=== PATIENT | female | born 1995 | race Caucasian/White ===

== ENCOUNTER 2020-06-20 16:19 | Emergency (ER) | payer BC ==
[2020-06-20] MEDS ORDERED: SODIUM CHLORIDE 1,000 ML IV ONE (16:37)
[2020-06-20 16:38] VITALS: BP 107/72; PULSE 86; TEMP 97.5; BMI 20.9
[2020-06-20 17:09] LABS: HCG,QUALITATIVE URINE Negative
[2020-06-20 17:09] LABS: BASO % 0.8 % (0-2.0); HEMATOCRIT 39.4 % (32.4-45.2); HEMOGLOBIN 13.1 GM/dl (10.7-15.3); LYMPH % 17.9 % (8-40); MCH 31.3 pg (25.7-33.7); MCHC 33.3 g/dl (32.0-36.0); MEAN CELL VOLUME 93.9 fl (80-96); MEAN PLT VOLUME 8.9 fl (7.5-11.1); MONO % 5.4 % (3.8-10.2); NEUT % 73.9 % (42.8-82.8); PLATELET COUNT 237 K/MM3 (134-434); RDW 11.6 % (11.6-15.6); WHITE BLOOD COUNT 8.5 K/mm3 (4.0-10.8)
[2020-06-20 17:19] LABS: ALBUMIN 3.8 g/dl (3.4-5.0); BILIRUBIN,TOTAL 0.4 mg/dl (0.2-1); CALCIUM 8.9 mg/dl (8.5-10); CREATININE 0.6 mg/dl (0.55-1.3); POTASSIUM 3.6 mmol/L (3.5-5.1); TOT PROT 7.1 g/dl (6.4-8.2)
[2020-06-20 17:33] LABS: EPITHELIAL CELLS FEW /hpf
--- NOTE | 2020-06-20 18:06 | PDOC ---
Documentation entered by Grace Klein SCRIBE, acting as scribe for Aries Sarabia MD. Aries Sarabia MD: This documentation has been prepared by the Ernie leyva Brenda, SCRIBE, under my direction and personally reviewed by me in its entirety. I confirm that the documentation accurately reflects all work, treatment, procedures, and medical decision making performed by me. History of Present Illness - General Chief Complaint: Seizure Stated Complaint: POSSIBLE SEIZURE Time Seen by Provider: 06/20/20 16:33 History Source: Patient Exam Limitations: No Limitations - History of Present Illness Initial Comments: 06/20/20 17:20 The patient is a 25 year old female with a significant PMH of seizures (no seizures in the past 5 years) who presents to the emergency department sent from [facility] for a seizure pre-op breast augmentation. Per Dr. Macdonald, he had her standing up pre-surgery, at which time she began to feel lightheaded and when he tried sitting her down, she convulsed. Per patient she felt okay this morning and has not eaten since 7:00pm yesterday and has not drank anything since 12:00am. She does endorse feeling lightheaded and as if she was about to pass out while with Dr. Macdonald pre-op. Patient then notes not remebering anything else and waking up, wondering why there was commotion around her. Dr. Macdonald reports no apparent postictal period. The patient denies chest pain, shortness of breath, headache and dizziness. Denies fever, chills, nausea, vomiting, diarrhea, blood per rectum and constipation. Denies dysuria, frequency, urgency and hematuria. Allergies: Per EMR Social history: No reported hx of tobacco use, alcohol use or illicit drug use. Past History - Medical History Allergies/Adverse Reactions: Allergies Allergy/AdvReac Type Severity Reaction Status Date / Time cefprozil [From Cefzil] Allergy Hives Verified 06/20/20 10:34 seasonal Allergy Uncoded 06/20/20 10:34 Home Medications: Ambulatory Orders Alprazolam [Xanax] 0.25 mg PO DAILY PRN 06/15/20 Escitalopram Oxalate [Lexapro -] 20 mg PO DAILY 06/15/20 Norethindrone-E.estradiol-Iron [Taytulla 1 mg-20 Mcg Capsule] 1 each PO DAILY 06/15/20 Anemia: Yes (hx of asymptomatic von willebrand) Asthma: No Cancer: No Cardiac Disorders: No CVA: No COPD: No CHF: No Dementia: No Diabetes: No GI Disorders: No Disorders: No HTN: No Hypercholesterolemia: No Liver Disease: No Seizures: Yes (2014 R/T stress) Thyroid Disease: No - Surgical History Abdominal Surgery: No Appendectomy: No Cardiac Surgery: No Cholecystectomy: No Lung Surgery: No Neurologic Surgery: No Orthopedic Surgery: No - Psycho-Social/Smoking History Smoking History: Never smoked Review of Systems - Review of Systems Able to Perform ROS?: Yes Comments:: 06/20/20 17:38 Constitutional - Pt denies Fever, Chills, weakness, HEENT: denies vision changes, sore throat Respiratory: Denies cough, sob, hemoptysis Cardiac: (+) Lightheadedness. denies chest pain, palpitations, leg swelling Abd/GI: denies abd pain, nausea, vomiting, blood per rectum, melena, diarrhea : denies dysuria, frequency, discharge Musculskelatal - denies back pain, joint swelling skin - denies bruising, erythema, rash neurological: denies headache, numbness, focal weakness, tingling, ataxia, weakness hematologic: denies anemia, easy bruising, easy bleeding *Physical Exam - Physical Exam 06/20/20 17:39 GENERAL: The patient is awake, alert, and fully oriented, Nontoxic - in no acute distress. NECK: Normal range of motion, supple without lymphadenopathy, JVD, or masses. LUNGS: Breath sounds equal, clear to auscultation bilaterally. No wheezes, no crackles, no rales. HEART: Regular rate and rhythm, normal S1 and S2 without murmur, rub or gallop. ABDOMEN: Soft, nontender, normoactive bowel sounds. No guarding, no rebound. No masses. EXTREMITIES: Normal range of motion, no edema. No clubbing or cyanosis. No cor ds, erythema, or tenderness. NEUROLOGICAL: No facial asymmetry, Normal speech, normal gait. PSYCH: Normal mood, normal affect. SKIN: Warm, Dry, normal turgor, no rashes or lesions noted. Heart Score/ECG Review - ECG Impressions Comment:: 06/20/20 17:13 Twelve-lead EKG was performed and reviewed by me. There is normal sinus rhythm with a normal rate. Rate of 74 The axis is normal. Incomplete right bundle branch block There is normal R wave progression There are no ST or T wave abnormalities. ED Treatment Course - LABORATORY CBC & Chemistry Diagram: 06/20/20 16:45 06/20/20 16:39 Medical Decision Making - Medical Decision Making 06/20/20 17:13 25-year-old female history of remote seizures, presenting with syncope versus seizure episode just prior to her surgery when she was standing. There was no apparent postictal. Patient was otherwise asymptomatic besides feeling very lightheaded prior to syncopized. Suspect syncope possibly related to hypotension/dehydration as pt was NPO. Will obtain screening blood work, EKG, will give fluids for hydration Will reassess 06/20/20 18:03 pt feeling improved ua noted for bacturia, but pt is asymptomatic and no white blood cels/LE, suspect contaminant -will defer treatment discussed with the pt - if she should develop any symtoms, she could fu for restest. Pt has an appt with a neurologist scheduled this week. return precautions were discussed I discussed the physical exam findings, ancillary test results and final diagnoses with the patient. I answered all of the patient's questions. The patient was satisfied with the care received and felt comfortable with the discharge plan and treatment plan. The patient will call their primary care physician within 24 hours to arrange follow-up and will return to the Emergency Department with any new, persistent or worsening symptoms. Discharge - Discharge Information Problems reviewed: Yes Clinical Impression/Diagnosis: Dehydration Syncope Qualifiers: Syncope type: vasovagal syncope Qualified Code(s): R55 - Syncope and collapse Condition: Improved Disposition: HOME - Admission No - Follow up/Referral - Patient Discharge Instructions Patient Printed Discharge Instructions: DI for Syncope in Adults (Fainting) Additional Instructions: Return to the emergency department immediately with ANY new, persistent or worsening symptoms. You MUST call and follow up with your doctor in 2-3 days for further evaluation of your symptoms. Results were discussed with you. Please make sure your doctor reviews the results of your emergency evaluation. Your Emergency Department visit is not complete without a follow up with your doctor. Print Language: MONGOLIAN - Post Discharge Activity
--- NOTE | 2020-06-21 10:19 | EKG ---
Test Reason : Blood Pressure : / mmHG Vent. Rate : 074 BPM Atrial Rate : 074 BPM P-R Int : 160 ms QRS Dur : 104 ms QT Int : 390 ms P-R-T Axes : 037 038 041 degrees QTc Int : 432 ms NORMAL SINUS RHYTHM INCOMPLETE RIGHT BUNDLE BRANCH BLOCK BORDERLINE ECG NO PREVIOUS ECGS AVAILABLE Confirmed by MD Mauro, Rigoberto ([id number]) on 06/21/2020 10:18:47 AM Referred By: Confirmed By:Rigoberto Wade MD
== END 2020-06-20 18:09 | disposition home or self-care (01) ==
LOC: FER 16:19 → SUPCPDRO 16:19 → FER 18:09
PROC: 3E0337Z Introduction of Electrolytic and Water Balance Substance into Peripheral Vein, Percutaneous Approach (ICD-10-PCS; principal; 2020-06-20)
DX: E86.0 Dehydration (principal); R55 Syncope and collapse
CPT/HCPCS: 36415; 80053; 81003; 81015; 84703; 85025; 93005; 99284-25

== ENCOUNTER 2020-07-11 06:21 | Day surgery (SDC) | payer SELFPAY ==
[2020-07-05 14:53] VITALS: BMI 20.9
[2020-07-11] MEDS ORDERED: MIDAZOLAM HCL 2 MG/2 ML SINGLE DOSE VIAL ONE (07:00)
[2020-07-11] MEDS ORDERED: PROPOFOL 20 ML ONE (07:03)
[2020-07-11] MEDS ORDERED: LIDOCAINE HCL/PF 2% SDV 5ML VIAL ONE (07:04)
[2020-07-11] MEDS ORDERED: SUCCINYLCHOLINE CHLORIDE 200 MG/10 ML SYRINGE ONE (07:05)
[2020-07-11] MEDS ORDERED: ROCURONIUM BROMIDE 50 MG/5 ML SYRINGE ONE (07:05)
[2020-07-11] MEDS ORDERED: ceFAZolin SODIUM 1 GM VIAL ONE (07:36)
[2020-07-11] MEDS ORDERED: BACITRACIN 15 GM TUBE TOPICAL OINTMENT ONE (07:37)
[2020-07-11] MEDS ORDERED: GENTAMICIN SO4 80 MG/2 ML VIAL ONE (07:37)
[2020-07-11] MEDS ORDERED: DESMOPRESSIN ACETATE 4 MCG/ML AMP IVPB ONE (07:39)
[2020-07-11] MEDS ORDERED: DESMOPRESSIN ACETATE IVPB ONE (08:00)
[2020-07-11] MEDS ORDERED: SODIUM CHLORIDE IVPB ONE (08:00)
[2020-07-11] MEDS ORDERED: CLINDAMYCIN PHOSPHATE 600 MG/4 ML VIAL ONE (08:30)
[2020-07-11] MEDS ORDERED: BUPIVACAINE HCL/PF 2.5 MG/ML - 30 ML VIAL IJ ONE (08:38)
[2020-07-11] MEDS ORDERED: DEXAMETHASONE SOD PHOSPHATE 4 MG/1 ML VIAL ONE (08:59)
[2020-07-11] MEDS ORDERED: ONDANSETRON 4 MG/2 ML VIAL ONE ×2 (09:07→11:11)
[2020-07-11] MEDS ORDERED: HYDROmorphone HCL/PF 1 MG/ML VIAL ONE (09:08)
[2020-07-11] MEDS ORDERED: EPHEDRINE SULFATE/0.9% NACL/PF 50 MG/10 ML SYRINGE NR ONE (09:33)
[2020-07-11] MEDS ORDERED: ONDANSETRON 4 MG/2 ML VIAL IVPUSH PRN (09:57)
[2020-07-11] MEDS ORDERED: oxyCODONE HCL 5 MG TABLET PO PRN ×3 (09:57→11:23)
[2020-07-11] MEDS ORDERED: LACTATED RINGERS SOLUTION 1,000 ML IV SCH ×2 (10:00→11:30)
[2020-07-11] MEDS ORDERED: BUPIVACAINE HCL/PF 0.25% (2.5MG/ML) 10 ML VIAL IJ ONE (10:30)
[2020-07-11] MEDS ORDERED: NEOSTIGMINE METHYLSULFATE 0.5 MG/ML - 10 ML MDV ONE (10:38)
[2020-07-11] MEDS ORDERED: ONDANSETRON 4 MG/2 ML VIAL IVPB PRN (11:23)
[2020-07-11] MEDS ORDERED: TRIAMCINOLONE ACET 40MG/1ML VIAL ONE (11:36)
[2020-07-11] MEDS ORDERED: SODIUM CHLORIDE 0.9% P/F 10 ML VIAL IJ ONE (11:38)
[2020-07-11] MEDS ORDERED: oxyCODONE HCL 5 MG TABLET ONE (13:18)
[2020-07-11 13:44] VITALS: TEMP 98
[2020-07-11 13:46] VITALS: BP 118/69; PULSE 79
--- NOTE | 2020-07-11 19:23 | OP ---
DATE OF OPERATION: 07/11/2020 TITLE OF PROCEDURE: Bilateral augmentation mammoplasty. PREOPERATIVE DIAGNOSIS: Bilateral micromastia. POSTOPERATIVE DIAGNOSIS: Bilateral micromastia. The patient is counseled on all risks, benefits, and alternatives to the procedure, understands and agrees to proceed. DESCRIPTION OF PROCEDURE: Patient is seen in the holding area, marked appropriately for inframammary incisions. The right breast inframammary fold is lowered 5 mm. The patient is given 900 mg of mitomycin IV preoperatively. She is also given 6 mcg of DDAVP preoperatively as per the recommendations of her surgical services director on account of her mild Von Willebrand disease. We have discussed the risks, benefits, and alternatives to silicone breast augmentation, she understands and agrees to proceed. Patient is brought to the operating room, placed in a supine position. A full 30 minutes is waited after the infusion of the DDAVP. Antibiotics are given. She is prepped and draped in standard surgical fashion, after which the timeout was called. Patient, procedure, incision sites are verified. The patient is prepped and draped sterilely, after which the attention is first directed towards the right side . A 4-cm inframammary incision is made. The inframammary incision is dissected to the level of the pectoralis major muscle. A pocket is then developed deep to the pectoralis major muscle. Insertion fibers are partially divided inferomedially. Hemostasis is meticulously achieved, and mirror image procedure is then performed on left side. Care is taken to assure that the pockets are symmetric. The pockets are irrigated with triple antibiotic solution. The triple antibiotic solution contains a liter of normal saline, 100 mg of clindamycin, 80 mg of gentamicin, and 50,000 units of bacitracin. At this point, saline sizer is placed in each of the pockets and it is determined that the appropriate size for the implants is 250 mL after determining that a larger size is unnatural for her chest wall. The patient brought to seated upright position. The pockets are modified. The sizers are removed. Hemostasis once again achieved. The implants are brought into the field. These are Sientra smooth round moderate profile 250-mL silicone gel implants. They are rinsed in the triple antibiotic solution using a Ramos funnel and no-touch technique. They are placed in the pockets and oriented properly. Skin is tailer tacked with thad. Patient brought to a seated upright position where there is excellent symmetry, size, shape, and position. The capsular tissue is closed with a running locking 3-0 Monocryl suture. The dermis is approximated with a series of interrupted buried deep dermal 3-0 Monocryl suture. The skin is then closed with a running subcuticular 4-0 Monocryl suture. It is important to know that prior to implant placement, 10 mL of 0.25% Marcaine plain is injected in the pectoralis muscle on both sides. Also after final closure, the incision lines are injected each with 0.5 mL of Kenalog 10 as a prophylactic measure against hypertrophic scarring, which this patient is prone to. Incisions are dressed with Steri-Strips, 4x4 gauze, ABD gauze, surgical bra, woken from anesthesia having tolerated procedure well. ORLY SILVA M.D. [id number]
== END 2020-07-11 14:15 | disposition home or self-care (01) ==
LOC: FASU 06:21
PROVIDERS: ATTEND Plastic Surgery
PROC: 0H0V0JZ Alteration of Bilateral Breast with Synthetic Substitute, Open Approach (ICD-10-PCS; principal; 2020-07-11 09:19)
DX: N64.82 Hypoplasia of breast (principal)
CPT/HCPCS: 19325; L8600; 81025; 94760